=== PATIENT | female | born 1990 | race Two or more races ===

== ENCOUNTER 2018-12-25 15:29 | Inpatient (IN) | payer OTHER ==
[~2018-12-25] VITALS: Ht 149.9 cm; Wt 68.5 kg
== END 2019-01-24 14:00 | DRG 807 ==
LOC: EDBD 01-12 15:00 → OB/GYN 01-12 15:00 → LDR 01-21 19:22 → OB/GYN 01-21 19:45 → LDR 01-21 21:47 → OB/GYN 01-22 18:45
PROVIDERS: ADMIT Obstetrics & Gynecology
PROC: 4A1HXCZ Monitoring of Products of Conception, Cardiac Rate, External Approach (ICD-10-PCS; 2019-01-21)
PROC: 10E0XZZ Delivery of Products of Conception, External Approach (ICD-10-PCS; principal; 2019-01-22)
PROC: 0KQM0ZZ Repair Perineum Muscle, Open Approach (ICD-10-PCS; 2019-01-22)
PROC: 0W8NXZZ Division of Female Perineum, External Approach (ICD-10-PCS; 2019-01-22)
PROC: 3E033VJ Introduction of Other Hormone into Peripheral Vein, Percutaneous Approach (ICD-10-PCS; 2019-01-22)
DX: O70.1 Second degree perineal laceration during delivery (principal); Z37.0 Single live birth; Z3A.40 40 weeks gestation of pregnancy

== ENCOUNTER 2023-05-04 07:19 | Day surgery (SDC) | payer OTHER ==
[2023-04-27 10:32] LABS: HEMATOCRIT 38.6 % (36.0-45.00); HEMOGLOBIN 13.1 g/dL (12.0-15.00); MEAN CORPUSCULAR HEMOGLOBIN 29.7 pg (27.00-32.0); MEAN CORPUSCULAR HGB CONC 33.8 g/dl (32.0-36.0); PLATELET COUNT 316 K/uL (150-450); RED BLOOD COUNT 4.39 M/uL (4.00-6.00); RED CELL DISTRIBUTION WIDTH 13.2 % (11.5-14.5)
[2023-04-27 11:30] LABS: PH,URINE 6.5 (5.0-8.0); URINE APPEARANCE Clear; URINE BILIRRUBIN Negative (NEGATIVE); URINE BLOOD Negative; URINE COLOR Yellow; URINE GLUCOSE Negative (NEGATIVE); URINE LEUKOCYTE Trace; URINE NITRATE Negative; URINE PROTEIN Negative (NEGATIVE); URINE UROBILINOGEN 0.2 E.U./dl
[2023-04-27 11:31] LABS: INR 1.06; PARTIAL THROMBOPLASTIN TIME 30.8 SECONDS (22.0-34.0); PROTHROMBIN TIME 11.1 SECONDS (9.0-11.5)
[2023-04-27 11:35] LABS: URINE EPITHELIAL CELLS 13.1 uL (0.0-38.8); URINE RBC 12.6 uL (0.0-20.8)
[2023-04-27 11:36] LABS: ALBUMIN 4.1 gm/dL (3.4-5.0); BILIRUBIN TOTAL 0.55 mg/dL (0.3-1.2); CALCIUM 9.3 mg/dL (8.5-10.1); CREATININE SERUM 0.57 mg/dL (0.55-1.02); GFR 121.41; GLOBULINA 3.3 G/DL (2.4-3.5); POTASSIUM 3.88 mEq/L (3.5-5.1); TOTAL PROTEIN 7.4 gm/dL (6.4-8.2); TSH 0.375 uIU/mL (0.358-3.74)
[2023-04-27 11:39] LABS: URINE WBC 1.6 uL (0.0-23.2)
[2023-05-04] MEDS ORDERED: CEFOXITIN SODIUM 2,000 MG VIAL IV ONE ×2 (09:18→12:15)
[2023-05-04] MEDS ORDERED: POVIDONE-IODINE 118 ML BOTT TOP ONE ×2 (11:48→12:15)
[2023-05-04] MEDS ORDERED: MORPHINE SULFATE 4 MG/ML VIAL IV PRN (12:45)
[2023-05-04] MEDS ORDERED: PROMETHAZINE HCL 50 MG/ML AMPUL IM ONE (12:45)
[2023-05-04] MEDS ORDERED: NAPR500T14 PO (12:48)
[2023-05-04] MEDS ORDERED: MORGIDOX100 MG PO (12:48)
[2023-05-04] MEDS ORDERED: ONDANSETRON HCL 2 MG/ML VIAL ONE (13:56)
== END 2023-05-04 16:40 | disposition home or self-care (01) ==
LOC: CIR.AMB 07:19
PROVIDERS: ATTEND Obstetrics & Gynecology
DX: N84.0 Polyp of corpus uteri (principal); N93.8 Other specified abnormal uterine and vaginal bleeding; D25.0 Submucous leiomyoma of uterus